=== PATIENT | male | born 1945 | race Caucasian/White ===

== ENCOUNTER 2017-07-22 08:28 | Day surgery (SDC) | payer MEDICARE ==
[2017-07-22] MEDS ORDERED: Lactated Ringer's 500 ML IV ONE (09:45)
[2017-07-22] MEDS ORDERED: Propofol 10 mg/ml Inj (20 ML) ONE (11:20)
[2017-07-22 12:15] VITALS: RESP 9; TEMP 97.3; O2SAT 100
[2017-07-22 12:31] VITALS: BP 117/68; PULSE 60
== END 2017-07-22 12:34 | disposition home or self-care (01) ==
LOC: H.ENDO 08:28
PROVIDERS: ATTEND Internal Medicine Gastroenterology
DX: K64.8 Other hemorrhoids (principal); I10 Essential (primary) hypertension; R19.5 Other fecal abnormalities; K57.30 Diverticulosis of large intestine without perforation or abscess without bleeding; K21.0 Gastro-esophageal reflux disease with esophagitis; K31.89 Other diseases of stomach and duodenum; K30 Functional dyspepsia; R12 Heartburn; K29.50 Unspecified chronic gastritis without bleeding
CPT/HCPCS: 43239; 45378; 88305; J2001; J2704; J7120